=== PATIENT | male | born 1960 | race Hispanic/Latino ===

== ENCOUNTER → 2024-02-12 | Outpatient (CLI) | payer BC ==
[~2024-02-12] MED LIST: IOHEXOL 350 MG/ML 100ML INFUS..BTL IV ONE
--- NOTE | 2024-02-12 13:35 | HMCIMG ---
CT ABDOMEN/PELVIS W/WO CONTRAS HISTORY: Right lower quadrant pain COMPARISON: None TECHNIQUE: Multiple sequential axial images of the abdomen and pelvis were obtained from the dome of the diaphragm through symphysis pubis. Patient was given Omnipaque through intravenous route. Oral contrast was given. FINDINGS: No pleural effusion is seen bilaterally. There is no evidence of parenchymal disease or pulmonary nodule of the visualized lower lungs. Degenerative changes of the thoracolumbar spine are present. The heart is not enlarged. The liver, spleen, adrenal glands and pancreas are unremarkable. There is no evidence of hydronephrosis bilaterally. No evidence of renal stone is seen. Fecal material is seen in the colon. There are normal size retroperitoneal and mesenteric lymph nodes. No ascites is seen. Atherosclerotic changes are present. Appendix is not well seen limiting evaluation. There is diverticulosis. There is questionable minimal mesenteric fat stranding adjacent to the sigmoid colon with early acute diverticulitis not excluded. No focal abscess is seen. Pelvic sidewalls are symmetric bilaterally. Bladder is moderately distended with apparent bladder wall thickening. IMPRESSION: 1. Appendix is not well seen limiting evaluation. There is diverticulosis. There is questionable minimal mesenteric fat stranding adjacent to the sigmoid colon with early acute diverticulitis not excluded. No focal abscess is seen. CT was performed with one or more following dose reduction techniques: automated exposure control, adjustment of the mA and kv according to patient's size, or use of a iterative reconstruction technique.
== END | disposition home or self-care (01) ==
LOC: RAH 11:46
PROVIDERS: ATTEND Family Medicine
DX: K57.30 Diverticulosis of large intestine without perforation or abscess without bleeding (principal); N32.89 Other specified disorders of bladder; M47.815 Spondylosis without myelopathy or radiculopathy, thoracolumbar region; I70.90 Unspecified atherosclerosis; K40.90 Unilateral inguinal hernia, without obstruction or gangrene, not specified as recurrent; R10.31 Right lower quadrant pain
CPT/HCPCS: 74178; Q9967